=== PATIENT | female | born 1935 | race Caucasian/White ===

== ENCOUNTER → 2017-03-13 | Outpatient (CLI) | payer OTHER ==
[~2017-03-13] MED LIST: ASCORBIC ACID250 MG PO; B-COMPLEX-VITA1 EACH PO; CENTRUM WOMEN1 EACH PO; NEURONTIN300 MG PO; NOHOMEMEDS; VITAMIN D-32000 UNI2 PO; VITAMIN E400 UNIT PO
== END | disposition home or self-care (01) ==
LOC: AMB 12:46
PROC: 0WBF3ZX Excision of Abdominal Wall, Percutaneous Approach, Diagnostic (ICD-10-PCS; principal; 2017-03-13)
DX: D47.2 Monoclonal gammopathy (principal); M62.81 Muscle weakness (generalized); R53.83 Other fatigue
CPT/HCPCS: 88305

== ENCOUNTER → 2017-11-02 | Outpatient (CLI) | payer OTHER ==
[~2017-11-02] MED LIST changes: +TRAZODONE HCL100 MG PO; +TRAZODONE HCL50 MG PO; +TYLENOL ARTHRI650 MG PO; +VENTOLIN HFA18 GM IH
== END | disposition home or self-care (01) ==
LOC: OPR 07:31 → EDSTATUS 08:00
PROC: 0BBF3ZX Excision of Right Lower Lung Lobe, Percutaneous Approach, Diagnostic (ICD-10-PCS; principal; 2017-11-02)
DX: C34.31 Malignant neoplasm of lower lobe, right bronchus or lung (principal); Z87.891 Personal history of nicotine dependence; G47.33 Obstructive sleep apnea (adult) (pediatric)
CPT/HCPCS: 71045; 77012; 88305; 88341 TC; 88342 TC; J3010

== ENCOUNTER 2017-11-26 11:09 | Emergency (ER) | payer OTHER ==
[~2017-11-26] VITALS: Ht 167.6 cm; Wt 90.4 kg
[2017-11-26 12:06] LABS: HEMATOCRIT 38.7 % (36.0-46.0); HEMOGLOBIN 13.2 G/DL (11.9-15.5); MCH 29.9 PG (29.0-34.0); MCHC 34.1 G/DL (30.0-36.0); MCV 87.6 FL (83-99); PLATELET COUNT 220 K/uL (156-360); RBC DIS.WIDTH-CV 13.3 % (11.8-14.6); RBC DIS.WIDTH-SD 42.6 % (39-53); RED BLOOD COUNT 4.42 M/uL (3.80-5.20)
[2017-11-26 12:15] LABS: CHLORIDE 104 mEq/L (99-109); POTASSIUM 4.4 mEq/L (3.7-5.4); SODIUM 141 mEq/L (136-147)
[2017-11-26 12:16] LABS: GLUCOSE 98 mg/dL (70-99)
[2017-11-26 12:20] LABS: CREATININE 1.1 mg/dL (0.6-1.3); GFR ESTIMATE (CALCULATED) 51 mL/min/
[2017-11-26 12:21] LABS: UREA NITROGEN (BUN) 19 mg/dL (9-23)
[2017-11-26 12:27] LABS: TROP-I INTERPRETATION NEGATIVE; TROPONIN-I 0.01 ng/mL (0.0-0.30)
[2017-11-26 13:29] LABS: LIPASE 20 U/L (1.0-51.0)
[2017-11-26 14:55] LABS: TROP-I INTERPRETATION NEGATIVE; TROPONIN-I 0.01 ng/mL (0.0-0.30)
[2017-11-26 15:14] VITALS: BP 151/106
== END 2017-11-26 15:36 | disposition home or self-care (01) ==
LOC: EME 11:09
PROVIDERS: Emergency Medicine
DX: R07.9 Chest pain, unspecified (principal); D47.2 Monoclonal gammopathy; C34.90 Malignant neoplasm of unspecified part of unspecified bronchus or lung; Z87.891 Personal history of nicotine dependence; Z88.5 Allergy status to narcotic agent
CPT/HCPCS: 71046; 80048; 83690; 84484; 85027; 93005; 99281; 99284